=== PATIENT | female | born 1930 | race Caucasian/White ===

== ENCOUNTER 2016-02-15 12:27 | Inpatient (IN) | payer MEDICARE, BC ==
[~2016-02-15] VITALS: Ht 152.4 cm; Wt 63.7 kg
--- NOTE | ~2016-02-15 | DS ---
[place], [place] DISCHARGE SUMMARY NAME: CHIQUI GALVAN UNIT #: [id number] ROOM: 421 DOCTOR: LIDIA FINK MD BIRTHDATE: [birth year] DOS: 02/18/2016 DATE OF DISCHARGE: 02/18/2016 DIAGNOSES: 1. Gastrointestinal bleed, status post endoscopy showing minimal amount of gastritis. 2. Recent non-ST elevation myocardial infarction. 3. Severe dilated cardiomyopathy. 4. Chronic atrial fibrillation. 5. Generalized anxiety disorder. 6. Aortic stenosis. 7. Hypothyroidism. This patient is very well known to us, presents with bleeding per rectum. Please refer H and P for details. After admission, the patient was placed on IV fluids, very slow hydration. Consultation with Dr. Kc was obtained and serial H and Hs were done. There is some drop in H and H from 12 to 10 initially. Endoscopy was performed, which showed gastritis and she is not a candidate for colonoscopy because of high risk because of the recent DE, so the family decided not to do a colonoscopy. On 02/17/2016, she had another bleed, but her H and H did not show much drop, so again we did not proceed with any further workup. She is on Coumadin. Protimes have been on the lower side on admission, but the Coumadin will be on hold. The patient does not take any nonsteroidals or aspirin. The patient remained stable and is not having any new problems. The plan will be to discharge her to home today. DISCHARGE MEDICATIONS: Will be, Protonix 40 daily, losartan 100 b.i.d., Coreg 25 b.i.d., levothyroxine 88 mcg daily, digoxin 0.125 daily, Bumex 0.5 daily, oxygen at night, nitroglycerin 0.2 mg apply in the morning, remove in the evening, Xanax 0.5 b.i.d., Zofran 4 mg daily p.r.n., warfarin was held. We will restart it at a later date. We will see her as an outpatient next week, so we can make sure her hemoglobin is stable. [place], [place] DISCHARGE SUMMARY NAME: CHIQUI GALVAN UNIT #: [id number] ROOM: 421 DOCTOR: LIDIA FINK MD BIRTHDATE: [birth year] ILDIA FINK MD CM:LEA [id number] LIDIA FINK MD 02/18/16 1354 interface
--- NOTE | ~2016-02-15 | PR ---
[place], [place] PROGRESS NOTE NAME: CHIQUI GALVAN UNIT #: [id number] ROOM: 421 DOCTOR: ALLAN GRIFFIN MD BIRTHDATE: [birth year] CM:PNTRANS [id number] ALLAN GRIFFIN MD 03/26/16 0908 interface
--- NOTE | ~2016-02-15 | WRIGHTHP ---
[place], [place] PATIENT HISTORY AND PHYSICAL EXAM NAME: CHIQUI GALVAN [facility] #: [id number] UNIT #: [id number] ROOM: [facility] DOCTOR: LIDIA FINK MD BIRTHDATE: [birth year] DOS: 02/15/2016 HISTORY OF PRESENT ILLNESS: The patient is 85 years old. The patient is very well known to us, comes in after having bleeding per rectum. The patient was getting up and out of bed, was combing her head standing up when she had an incontinent bowel movement, but when her family cleaned her up, they realized it was just linda blood and so brought her to the Emergency Room. She is very anxious today, does not have any complaints of chest pains or palpitations, does not have any fever or chills, has minimal abdominal discomfort. The patient states that she has been taking her medications regularly. PAST MEDICAL HISTORY: Significant for hospital admission last week with: 1. Non-ST elevation PA with elevated troponin. 2. Severe dilated cardiomyopathy. 3. Chronic atrial fibrillation. 4. Generalized anxiety disorder. 5. Aortic stenosis. 6. Hypothyroidism. MEDICATIONS: That she is on are Xanax 0.5 b.i.d., Bumex 1.5 mg daily, Coreg 25 b.i.d., digoxin 0.125 daily, Synthroid 88 mcg, losartan 100 b.i.d., warfarin 3 mg daily, nitroglycerin 0.2 mg daily. SOCIAL HISTORY: Nonsmoker. PHYSICAL EXAMINATION: GENERAL: The patient is awake, alert, and oriented. VITAL SIGNS: Graphic trend shows pressure is 110/70, pulse of 76, respirations 14. LUNGS: Diminished breath sounds. HEART: Irregular. ABDOMEN: Obese, soft, nontender. EXTREMITIES: Without any edema. ASSESSMENT AND PLAN: 1. Gastrointestinal bleed. She continues to have bleeding per rectum and a drop in H and H this morning. Discussed with Dr. Kc in detail. The patient is high risk for procedures because of the recent non-ST elevation PA. The patient's daughter is also aware of it. The Coumadin will be on hold. The protime has been subtherapeutic on admission. 2. Severe dilated cardiomyopathy with chronic pleural effusions. The patient does not appear to be in acute congestive heart failure today. I would be in the best interest not to give the patient too much fluid, so very slow IV hydration was ordered. 3. Chronic hypoxic respiratory failure, on oxygen supplementation right now, which will be continued. [place], [place] PATIENT HISTORY AND PHYSICAL EXAM [facility]: [id number] UNIT #: [id number] ROOM: [facility] DOCTOR: LIDIA FINK MD BIRTHDATE: [birth year] LIDIA FINK MD CM:HISPHYS:PATIENT HISTORY AND PHYSICAL EXAMINATION [id number] LIDIA FINK MD 02/16/16 1044 interface
--- NOTE | ~2016-02-15 | O ---
[place], [place] OPERATIVE NOTE [id number] UN[facility] #: [id number] ROOM: 421 DOCTOR: ALLAN GRIFFIN MD BIRTHDATE: [birth year] DOS: GASTROENDOSCOPIC REPORT INDICATION: The patient has presented with GI bleed, drop in H and H, undergoing investigation and therapy. H and H today are 10 and 31. PROCEDURE: Today's procedure part of investigation is panendoscopy plus photographic series. PREMEDICATION: Versed and Diprivan. SCOPE: Olympus forward-viewing gastroscope, Q10 video. REPORT: After putting the patient in the left lateral position and after application of lubricant to the scope, the scope was introduced. Thereafter, under direct visualization, I advanced through the length of esophagus without difficulty. A small hiatal hernia was appreciated. The gastric pouch was noticed. Gastritis seen. Duodenal bulb, second and third part within normal limits. The patient was gradually extubated and tolerated the procedure well. IMPRESSION: Gastritis. No active bleeding in the stomach was noticed. Small hiatal hernia seen. Case has been discussed with the family. They are content and they understand the high risk of colonoscopy. Therefore, we are on hold. Thank you very much indeed. ALLAN GRIFFIN MD CM:OPRECORD:OPERATIVE NOTE [id number] LIDIA GRIFFIN MD 03/27/16 1346 interface
--- NOTE | ~2016-02-15 | PR ---
[place], [place] PROGRESS NOTE NAME: CHIQUI GALVAN [facility] #: [id number] UNIT #: [id number] ROOM: 421 DOCTOR: ELIAS RUDOLPHALLAN BIRTHDATE: [birth year] DOS: 02/18/2016 HISTORY OF PRESENT ILLNESS: The patient has presented with chief complaint of GI bleed, site ambiguous. The patient with high risk for multi-systemic issues. Case has been discussed with Dr. Lawton, attending physician. The patient has had EGD. Gastritis was noticed. No therapeutics was done. The previous postop report of epinephrine injection was redundant statement printed by computer. During the course of stay again, she has had a bloody BM today and follow H and H has been obtained. Yesterday, his H and H was 10 and 31.9 and again today's followup was 10 and 31 again and again today's H and H 10 and 30, essentially that means that she is not actively bleeding. Whatever she has is residual stool that is coming out. PAST MEDICAL HISTORY: Myocardial infarction, atrial fibrillation, aortic stenosis, hypothyroidism. SOCIAL HISTORY: Nonsmoker. MEDICATIONS: List has been reviewed. REVIEW OF SYSTEMS: No hematemesis, no shortness of breath, no chest pain, no diarrhea, some residual blood per rectum. PHYSICAL EXAMINATION: VITAL SIGNS: Stable. HEENT: Benign. NECK: Supple, no thyromegaly. CHEST: Symmetric anatomy, equal expansion. HEART: Atrial fibrillation, moderate ventricular response. ABDOMEN: Soft. No hepato-organomegaly. Bowel sounds present. No pulsatile mass. EXTREMITIES: No cyanosis, no pedal edema. NEUROLOGIC: Alert, oriented to time, place and person. IMPRESSION: Gastrointestinal bleed, ambiguous site, most likely lower gastrointestinal status post previous EGD yesterday with gastritis finding, no active bleeding in upper GI tract. PLAN: Supportive management. It looks that her H and H has been sustaining at the same 10 and 30 level; therefore, we are going to continue with conservative therapy. We are going to continue with the regular diet, observation of H and H today at 6:00 p.m. and next setting is going to be tomorrow morning and daily, one today afternoon and then one tomorrow and then daily every morning. We are going to stop q.6h. H and H because it is not going to have any productive meaning because we are not planning to do anything different. Thank you very much indeed. OTHER ADJUNCTIVE DIAGNOSES: As outlined in past medical and surgical history. [place], [place] PROGRESS NOTE NAME: CHIQUI GALVAN UNIT #: [id number] ROOM: [facility] DOCTOR: ELIAS RUDOLPH,ALLAN BIRTHDATE: [birth year] ALLAN GRIFFIN MD CM:PNTRANS [id number] ALLAN GRIFFIN MD 03/26/16 0912 interface
--- NOTE | ~2016-02-15 | PR ---
[place], [place] PROGRESS NOTE NAME: CHIQUI GALVAN [facility] #: [id number] UNIT #: [id number] ROOM: 421 DOCTOR: LIDIA FINK MD BIRTHDATE: [birth year] DOS: SUBJECTIVE: The patient underwent the endoscopy yesterday that showed mostly gastritis. The patient feels good and is not having any complaints. Hemoglobin has remained stable in the last 3 attempts. OBJECTIVE: VITAL SIGNS: Blood pressure is 130/63, pulse of 80, respirations 20, temperature 97.5. LUNGS: Clear. HEART: Irregular. ABDOMEN: Soft, nontender. EXTREMITIES: Without any edema. ASSESSMENT AND PLAN: 1. GI bleed with endoscopy showing gastritis and small hiatal hernia. Colonoscopy was not done because of high risk, but the patient has not had any more GI bleed and has remained stable without much further drop in hematocrit, so we will increase the diet and if the patient remains stable, she could be discharged to home tomorrow. 2. Severe dilated cardiomyopathy with recent non-ST elevation MS. Continue supportive and symptomatic care. LIDIA FINK MD CM:PNTRANS [id number] LIDIA FINK MD 02/17/16 1306 interface
--- NOTE | ~2016-02-15 | CON ---
[place], [place] REPORT OF CONSULTATION NAME: CHIQUI GALVAN UNIT #: [id number] ROOM: 421 DOCTOR: ALLAN GRIFFIN MD BIRTHDATE: [birth year] DOS: 02/16/2016 GASTROENDOSCOPIC REPORT HISTORY OF PRESENT ILLNESS: An 85-year-old patient who has presented with multiple medical problems, among which complaint being GI bleed, detail is not known. PAST MEDICAL HISTORY: Dilated cardiomyopathy, atrial fibrillation, anxiety disorder, aortic stent, hypothyroidism. MEDICATIONS: She has been on warfarin 3 mg daily, amongst the other medications. SOCIAL HISTORY: Nonsmoker, nonalcohol consumer. She used to be a smoker in the remote past. PAST SURGICAL HISTORY: D and C, appendix, tonsils, aortic stent. REVIEW OF SYSTEMS: In general, HEENT: Denies double vision, blurred vision. RESPIRATORY: Denies acute shortness of breath. CARDIOVASCULAR: Denies chest pain. DIGESTIVE SYSTEM: Blood in stool. PHYSICAL EXAMINATION: VITAL SIGNS: Stable. Case has been discussed with Dr. Lawton. Concerns have been reviewed, which are multiple systemic. Otherwise, HEENT: Within normal limit. NECK: Supple, no thyromegaly, no cervical lymphadenopathy. CHEST: Symmetric anatomy, equal expansion. Few scattered rhonchi bibasilar. HEART: Irregular irregularity. ABDOMEN: Soft. No hepato-organomegaly. Bowel sounds present. No pulsatile masses, slightly globular. EXTREMITIES: No cyanosis, no pedal edema. NEUROLOGIC: Alert, oriented to time, place, person. Medication reviewed. Records reviewed. Case discussed with the family and attending physician Dr. Lawton, and limitations are recognized. PLAN AND DISCUSSION: Labs and records have been reviewed. The latest drop in H and H at 10 and 31 has been noticed. Platelet count 141. Lactic acid has been normal. Blood cultures have been recognized. CBC differential was recognized. We are going to proceed with a limited endoscopic evaluation, i.e., assessment of upper endoscopy. Thank you very, indeed. [place], [place] REPORT OF CONSULTATION NAME: CHIQUI GALVAN UNIT #: [id number] ROOM: 421 DOCTOR: ALLAN GRIFFIN MD BIRTHDATE: [birth year] ALLAN GRIFFIN MD CM:CONSTR:REPORT OF CONSULTATION 1448 02/17/16 0510 interface
--- NOTE | ~2016-02-15 | PR ---
[place], [place] PROGRESS NOTE NAME: CHIQUI GALVAN [facility] #: [id number] UNIT #: [id number] ROOM: 421 DOCTOR: LIDIA FINK MD BIRTHDATE: [birth year] DOS: SUBJECTIVE: The patient is doing fine this morning. She did have an episode of bleed yesterday mid morning. OBJECTIVE: VITAL SIGNS: Graphic trend shows pressure 112/48, pulse of 62, respiration rate 16, temperature 97.5. LUNGS: Clear. HEART: Irregular. ABDOMEN: Obese, soft. EXTREMITIES: Without any edema. ASSESSMENT AND PLAN: 1. GI bleed with precipitous drop in hematocrit. The patient has not required any blood transfusion and even though, she had voluminous amount of blood loss. The patient's hemoglobin remains to be around 9.7 and it is just slightly dropped from yesterday of 10.7. Since the patient is not symptomatic anymore, the plan is to discharge her to home. She is also not a candidate for colonoscopy because of the recent non-ST elevation PR. The patient and family understand and is aware of risk. The Coumadin and aspirin will be discontinued. The patient is overall stable and can be discharged to home today. I will go ahead and counseled visiting nurses for discharge. LIDIA FINK MD CM:PNTRANS 1154 [id number] LIDIA FINK MD 02/19/16 0033 interface
[~2016-02-15 12:27] MED LIST: ASPIRIN EC325 MG PO; BACTROBAN OINT22 GM NAS; BUMETANIDE0.5 MG PO; BUMEX0.5 MG PO; BUMEX2.5 MG/10 IV; CARAFATE1 GM PO; CARTIA XT120 MG PO; CARVEDILOL25 MG PO; CEFUROXIME AXE250 MG PO; CIPRO250 MG PO; CITALOPRAM10 MG PO; COREG12.5 M1 PO; COREG12.5 MG PO; COREG25 MG PO; COUMADIN10 M1 PO; COUMADIN3 M1 PO; COZAAR100 MG PO; DIGOX0.125 MG PO; DOXYCYCLINE100 M3 PO; INDOCIN25 MG PO; JANTOVEN1 MG PO; JANTOVEN3 MG PO; LANOXIN0.125 MG PO; LASIX20 MG PO; LASIX40 MG PO; LEVOTHYROXINE0.1 MG PO; LOSARTAN POTASS1 TA3 PO; MACROBID100 M1 PO; MICRO-K10 MEQ PO; NITRO-DUR1 EAC1 TD; OXYGEN NAS; PERCOCET 325 MG1 TA2 PO; POTASSIUM CHLO10 ME1 PO; PREDNISONE20 MG PO; PROTONIX40 MG PO; SYNTHROID0.1 MG PO; Synthroid,Lev100 MCG PO; ULTRAM50 MG PO; VITAMIN D1000 IU PO; VITAMIN D32000 IU PO; XANAX PO; XANAX0.25 MG PO; ZOFRAN ODT4 MG PO; ZOFRAN ODT4 MG SL; Zofran4 MG PO
[2016-02-15 12:34] VITALS: BP 164/90
[2016-02-15 13:19] LABS: BASO % 0.5 % (0.0-1.0); EOS # 0.3 10*3/uL (0.0-0.4); EOS % 3.6 % (1.0-4.0); HEMATOCRIT 37.3 % (37.0-47.0); HEMOGLOBIN 12.2 g/dl (12.0-16.0); LYMPH # 0.7 10*3/uL (1.3-4.4); LYMPH % 8.6 % (27.0-41.0); MEAN CELL VOLUME 96.9 fl (81.0-99.0); MEAN CORPUSCULAR HGB 31.7 pg (27.0-31.0); MEAN CORPUSCULAR HGB CONC 32.7 g/dl (33.0-37.0); MEAN PLATELET VOLUME 11.3 fl (9.6-12.3); MONO # 0.6 10*3/uL (0.1-1.0); MONO % 6.5 % (3.0-9.0); NEUT # 6.9 10*3/uL (2.3-7.9); NEUT % 80.3 % (47.0-73.0); PLATELET COUNT AUTOMATED 167 10*3/uL (130-400); RED BLOOD COUNT 3.85 10*6/uL (4.10-5.10); RED CELL DISTRI WIDTH 15.9 % (0-14.5); WHITE BLOOD COUNT 8.6 10*3/uL (4.8-10.8)
[2016-02-15 13:26] LABS: INTERNATIONAL NORM RATIO 1.4 (2.0-3.5); PROTHROMBIN TIME 14.5 SECONDS (9.0-12.4)
[2016-02-15 13:35] LABS: ALBUMIN 3.1 gm/dl (3.1-4.5); BILIRUBIN, TOTAL 0.9 mg/dl (0.2-1.0); POTASSIUM 3.9 mmol/L (3.5-5.1); TOTAL PROTEIN 6.5 gm/dL (6.4-8.2)
[2016-02-15 13:38] LABS: C-REACTIVE PROTEIN 0.34 MG/DL (0-0.3); CKMB 2.2 ng/ml (0.5-3.6)
[2016-02-15 14:21] VITALS: BP 154/70
[2016-02-15 16:22] VITALS: BP 155/83
[2016-02-15 17:00] VITALS: BP 187/104
[2016-02-15] MEDS ORDERED: Transderm-Nitr0.2 MG TD (17:23)
[2016-02-15] MEDS ORDERED: ZOFRAN4 MG PO (17:24)
[2016-02-15] MEDS ORDERED: XANAX0.5 MG PO (20:35)
[2016-02-15 21:42] LABS: HEMATOCRIT 33.9 % (37.0-47.0); HEMOGLOBIN 11.1 g/dl (12.0-16.0)
[2016-02-16] VITALS (8 sets, daily range): BP systolic 124–140; BP diastolic 53–71
[2016-02-16 06:03] LABS: HEMATOCRIT 31.3 % (37.0-47.0); HEMOGLOBIN 10.1 g/dl (12.0-16.0)
[2016-02-16 06:23] LABS: BASO % 0.6 % (0.0-1.0); EOS # 0.3 10*3/uL (0.0-0.4); EOS % 4.8 % (1.0-4.0); HEMATOCRIT 31.8 % (37.0-47.0); HEMOGLOBIN 10.3 g/dl (12.0-16.0); LYMPH # 1.5 10*3/uL (1.3-4.4); LYMPH % 23.6 % (27.0-41.0); MEAN CELL VOLUME 98.8 fl (81.0-99.0); MEAN CORPUSCULAR HGB CONC 32.4 g/dl (33.0-37.0); MEAN PLATELET VOLUME 11.4 fl (9.6-12.3); MONO # 0.7 10*3/uL (0.1-1.0); NEUT # 3.7 10*3/uL (2.3-7.9); NEUT % 59.8 % (47.0-73.0); PLATELET COUNT AUTOMATED 145 10*3/uL (130-400); RED BLOOD COUNT 3.22 10*6/uL (4.10-5.10); RED CELL DISTRI WIDTH 15.9 % (0-14.5); WHITE BLOOD COUNT 6.3 10*3/uL (4.8-10.8)
[2016-02-16 21:20] LABS: HEMATOCRIT 31.4 % (37.0-47.0); HEMATOCRIT 31.9 % (37.0-47.0); HEMOGLOBIN 10.1 g/dl (12.0-16.0)
[2016-02-17] VITALS: BP 130/63
[2016-02-17 06:03] LABS: HEMATOCRIT 30.9 % (37.0-47.0)
[2016-02-17 08:00] VITALS: BP 160/86
[2016-02-17 12:00] VITALS: BP 138/52
[2016-02-17 16:00] VITALS: BP 120/52
[2016-02-17 18:13] LABS: HEMOGLOBIN 10.6 g/dl (12.0-16.0)
[2016-02-17 20:00] VITALS: BP 144/64
[2016-02-18] VITALS: BP 157/63
[2016-02-18 06:14] LABS: BASO % 0.5 % (0.0-1.0); EOS # 0.3 10*3/uL (0.0-0.4); EOS % 4.7 % (1.0-4.0); HEMATOCRIT 30.2 % (37.0-47.0); HEMOGLOBIN 9.7 g/dl (12.0-16.0); LYMPH # 1.3 10*3/uL (1.3-4.4); LYMPH % 21.6 % (27.0-41.0); MEAN CELL VOLUME 97.7 fl (81.0-99.0); MEAN CORPUSCULAR HGB 31.4 pg (27.0-31.0); MEAN CORPUSCULAR HGB CONC 32.1 g/dl (33.0-37.0); MEAN PLATELET VOLUME 11.2 fl (9.6-12.3); MONO # 0.6 10*3/uL (0.1-1.0); MONO % 9.5 % (3.0-9.0); NEUT # 3.9 10*3/uL (2.3-7.9); NEUT % 63.4 % (47.0-73.0); PLATELET COUNT AUTOMATED 126 10*3/uL (130-400); RED BLOOD COUNT 3.09 10*6/uL (4.10-5.10); RED CELL DISTRI WIDTH 15.8 % (0-14.5); WHITE BLOOD COUNT 6.1 10*3/uL (4.8-10.8)
[2016-02-18 06:48] LABS: POTASSIUM 3.6 mmol/L (3.5-5.1)
[2016-02-18 08:00] VITALS: BP 112/48
[2016-02-18] MEDS ORDERED: PROTONIX40 MG PO (11:47)
== END 2016-02-18 13:08 | disposition home health service (06) | DRG 378 ==
LOC: ED 12:27 → EDHOLD 14:43 → ICCU 14:43 → 4E 02-16 20:05
PROVIDERS: Emergency Medicine; Internal Medicine; Internal Medicine Gastroenterology
PROC: 3E0G8GC Introduction of Other Therapeutic Substance into Upper GI, Via Natural or Artificial Opening Endoscopic (ICD-10-PCS; principal; 2016-02-16)
DX: K92.2 Gastrointestinal hemorrhage, unspecified (principal); I42.0 Dilated cardiomyopathy; I48.2 Chronic atrial fibrillation; K29.70 Gastritis, unspecified, without bleeding; K44.9 Diaphragmatic hernia without obstruction or gangrene; I35.0 Nonrheumatic aortic (valve) stenosis; F41.1 Generalized anxiety disorder; E03.9 Hypothyroidism, unspecified; E66.9 Obesity, unspecified; Z68.27 Body mass index [BMI] 27.0-27.9, adult; I25.2 Old myocardial infarction; Z88.0 Allergy status to penicillin; Z88.6 Allergy status to analgesic agent; Z88.8 Allergy status to other drugs, medicaments and biological substances; Z82.49 Family history of ischemic heart disease and other diseases of the circulatory system